=== PATIENT | female | born 1995 | race African-American/Black ===

== ENCOUNTER 2023-12-05 10:14 | Observation (INO) | payer BC ==
[~2023-12-05] VITALS: Ht 154.9 cm; Wt 76.7 kg
[2023-12-05] MEDS: LACTATED RINGERS 1,000 ML IV SCH ×2 (11:37→12:45)
[2023-12-05] MEDS ORDERED: ONDANSETRON 4 MG/2 ML VIAL IVP PRN (11:40)
[2023-12-05] MEDS ORDERED: MORPHINE SULFATE 4 MG/ML SYR ONE ×2 (11:41→11:49)
[2023-12-05] MEDS: ONDANSETRON 4 MG/2 ML VIAL ONE (11:45)
[2023-12-05] MEDS: MORPHINE SULFATE 10 MG/ML VIAL IVP PRN (11:46)
[2023-12-05] MEDS: TERBUTALINE 1 MG/ML VIAL SUBQ SCH (12:11)
[2023-12-05] MEDS ORDERED: PREN-543 PO (13:48)
== END 2023-12-05 14:05 | disposition home or self-care (01) ==
LOC: MLD 10:14
PROVIDERS: ADMIT Obstetrics & Gynecology; ATTEND Obstetrics & Gynecology
DX: O62.9 Abnormality of forces of labor, unspecified (principal); Z3A.39 39 weeks gestation of pregnancy
CPT/HCPCS: 96361; 96372; 96374; G0378; J2270; J2405; J3105

== ENCOUNTER 2023-12-06 06:08 | Inpatient (IN) | payer BC ==
[~2023-12-06] VITALS: Ht 154.9 cm; Wt 76.7 kg
[~2023-12-06 06:08] MED LIST: PREN-543 PO
[2023-12-06] MEDS: LACTATED RINGERS 1,000 ML IV SCH (07:16)
[2023-12-06] MEDS ORDERED: LACTATED RINGERS 500 ML IV SCH (07:40)
[2023-12-06] MEDS ORDERED: ONDANSETRON 4 MG/2 ML VIAL IVP PRN ×2 (07:45→13:45)
[2023-12-06] MEDS: TERBUTALINE 1 MG/ML VIAL SUBQ SCH (07:49)
[2023-12-06] MEDS: MORPHINE SULFATE 10 MG/ML VIAL IVP PRN (07:50)
[2023-12-06] MEDS: ONDANSETRON 4 MG/2 ML VIAL ONE (07:50)
[2023-12-06] MEDS ORDERED: AMPICILLIN 2,000 MG VIAL ONE (08:02)
[2023-12-06] MEDS: AMPICILLIN 2,000 MG in NACL 0.9% MINI-BAG PLUS 100 ML IV SCH (08:03)
[2023-12-06 08:22] LABS: BASOPHILS % (AUTO) 0.2 % (0.0-2.0); EOSINOPHILS % (AUTO) 0.1 % (0.0-4.0); HEMATOCRIT 41.5 % (36-48); LYMPHOCYTES # (AUTO) 1.4 K/uL (2.5-16.5); LYMPHOCYTES % (AUTO) 13.5 % (20.5-51.1); MEAN CORPUSCULAR HEMOGLOBIN 32 pg (27-31); MEAN CORPUSCULAR HGB CONC 34 g/dL (33-37); MEAN CORPUSCULAR VOLUME 96.1 fL (80-94); MONOCYTES # (AUTO) 0.7 K/uL (0.8-1.0); MONOCYTES % (AUTO) 6.5 % (1.7-9.3); NEUTROPHILS # (AUTO) 8.5 K/uL (1.8-7.7); NEUTROPHILS % (AUTO) 79.7 % (42.2-75.2); PLATELET COUNT (AUTO) 118 K/uL (140-450); RED BLOOD CELL COUNT(AUTO) 4.32 MIL/uL (4.20-5.40); WHITE BLOOD COUNT (AUTO) 10.7 K/uL (4.8-10.8)
[2023-12-06 08:23] LABS: APPEARANCE,URINE CLEAR (CLEAR); BILIRUBIN,URINE NEGATIVE (NEGATIVE); BLOOD, URINE 1+ (NEGATIVE); COLOR,URINE YELLOW (YELLOW); LEUKOCYTE ESTERASE ,URINE TRACE (NEGATIVE); NITRITE, URINE NEGATIVE (NEGATIVE); PROTEIN,URINE NEGATIVE (NEGATIVE); UGLUCOSE NEGATIVE (NEGATIVE)
[2023-12-06 08:33] VITALS: BP 123/81; PULSE 98; RESP 18; TEMP 98
[2023-12-06 08:39] LABS: BACTERIA,URINE 2+ /HPF (None Seen); RBC,URINE 11-20 (MOD) /HPF (0-5)
[2023-12-06 08:42] LABS: ALBUMIN 2.5 g/dL (3.4-5.0); ANION GAP 14.6 (8-16); CALCIUM 8.7 mg/dL (8.5-10.1); CARBON DIOXIDE 22.7 mmol/L (21-32); CREATININE 0.8 mg/dL (0.6-1.3); POTASSIUM 3.3 mmol/L (3.5-5.1); TOTAL BILIRUBIN 1.2 mg/dL (0.0-1.0); TOTAL PROTEIN, SERUM 6.3 g/dL (6.4-8.2)
[2023-12-06 08:47] LABS: INR 0.87 (0.8-1.2); PARTIAL THROMBOPLASTIN TIME 22.7 secs (22-35.6); PROTHROMBIN TIME 9.2 secs (10.8-13.4)
[2023-12-06] MEDS ORDERED: ROPIVACAINE 0.2%/NS PREMIX 200 ML EPI ONE (08:56)
[2023-12-06] MEDS: OXYTOCIN/0.9 % SODIUM CHLORIDE 500 ML IV ONE (10:45)
[2023-12-06] MEDS ORDERED: AMPICILLIN 1,000 MG VIAL ONE (11:26)
[2023-12-06] MEDS: AMPICILLIN 1,000 MG VIAL ONE (11:53)
[2023-12-06] MEDS: OXYTOCIN/0.9 % SODIUM CHLORIDE 500 ML IV SCH (11:55)
[2023-12-06] MEDS ORDERED: AMPICILLIN 1,000 MG in NACL 0.9% 50 ML IV SCH (12:00)
[2023-12-06] MEDS ORDERED: AMPICILLIN 1,000 MG in NACL 0.9% MINI-BAG PLUS 50 ML IV SCH (12:00)
[2023-12-06] MEDS ORDERED: oxyCODONE/APAP 5/325 MG 1 TAB TAB PO PRN ×2 (12:55)
[2023-12-06] MEDS ORDERED: TEMAZEPAM 15 MG CAP PO PRN (12:55)
[2023-12-06] MEDS ORDERED: IBUPROFEN 800 MG TAB PO PRN (12:55)
[2023-12-06] MEDS ORDERED: METHYLERGONOVINE 0.2 MG/ML AMP IM PRN (12:55)
[2023-12-06] MEDS ORDERED: KETOROLAC 30 MG/ML VIAL IVP PRN (12:55)
[2023-12-06] MEDS ORDERED: ceFAZolin 2,000 MG VIAL ONE (13:05)
[2023-12-06] MEDS ORDERED: LIDOCAINE/EPI MPF 2%1:200000 10 ML VIAL INJ ONE (13:08)
[2023-12-06] MEDS ORDERED: MORPHINE PRES FREE 5 MG/10 ML AMP IV ONE (13:08)
[2023-12-06] MEDS ORDERED: fentaNYL citrate 0.05 MG/ML VIAL ONE (13:08)
[2023-12-06] MEDS ORDERED: NALOXONE 0.4 MG/ML VIAL IVP PRN ×3 (13:45)
[2023-12-06] MEDS: OXYTOCIN 20 UNITS in LACTATED RINGERS 1,000 ML IV SCH (15:00)
[2023-12-06] MEDS: KETOROLAC 30 MG/ML VIAL IM/IVP SCH (18:01)
[2023-12-06] MEDS: diphenhydrAMINE 50 MG/ML VIAL IVP PRN (20:44)
[2023-12-06] MEDS ORDERED: OXYTOCIN/0.9 % SODIUM CHLORIDE 500 ML IV SCH (21:35)
[2023-12-07] MEDS: OXYTOCIN/0.9 % SODIUM CHLORIDE 500 ML IV SCH (01:05)
[2023-12-07 07:15] LABS: BASOPHILS # (AUTO) 0.1 K/uL (0.00-0.22); BASOPHILS % (AUTO) 0.6 % (0.0-2.0); EOSINOPHILS % (AUTO) 0.2 % (0.0-4.0); HEMATOCRIT 38.7 % (36-48); HEMOGLOBIN 12.9 g/dL (12.0-16.0); LYMPHOCYTES # (AUTO) 1.8 K/uL (2.5-16.5); LYMPHOCYTES % (AUTO) 13.4 % (20.5-51.1); MEAN CORPUSCULAR HEMOGLOBIN 32 pg (27-31); MEAN CORPUSCULAR HGB CONC 33 g/dL (33-37); MEAN CORPUSCULAR VOLUME 96.3 fL (80-94); MONOCYTES # (AUTO) 1.1 K/uL (0.8-1.0); MONOCYTES % (AUTO) 8.3 % (1.7-9.3); NEUTROPHILS # (AUTO) 10.5 K/uL (1.8-7.7); NEUTROPHILS % (AUTO) 77.5 % (42.2-75.2); PLATELET COUNT (AUTO) 91 K/uL (140-450); RED BLOOD CELL COUNT(AUTO) 4.02 MIL/uL (4.20-5.40); RED CELL DISTRIBUTION WIDTH 13.2 % (11.6-13.7); WHITE BLOOD COUNT (AUTO) 13.6 K/uL (4.8-10.8)
[2023-12-07] MEDS ORDERED: oxyCODONE/APAP 5/325 MG 1 TAB TAB PO PRN (08:00)
[2023-12-07] MEDS: IBUPROFEN 800 MG TAB PO PRN (18:52)
[2023-12-07] MEDS: oxyCODONE/APAP 5/325 MG 1 TAB TAB PO PRN (18:55)
[2023-12-07] MEDS: DOCUSATE SOD/SENNA 50/8.6 MG 1 TAB PO PRN (21:05)
[2023-12-08] MEDS ORDERED: CAMERA MC ONE (04:55)
[2023-12-09] MEDS ORDERED: CAMERA MC ONE (03:08)
== END 2023-12-09 10:15 | disposition home or self-care (01) | DRG 788 ==
LOC: MLD 06:08 → OBSVTOIN 07:41 → MFCC 15:00
PROVIDERS: ADMIT Obstetrics & Gynecology; ATTEND Obstetrics & Gynecology
PROC: 10D00Z1 Extraction of Products of Conception, Low, Open Approach (ICD-10-PCS; principal; 2023-12-06 12:45)
DX: O82 Encounter for cesarean delivery without indication (principal); Z3A.38 38 weeks gestation of pregnancy; Z37.0 Single live birth
CPT/HCPCS: 36415; 51702; 80053; 81001; 85025; 85610; 85730; 86592; 86886; 86900; 86901; 87086; 87653-90; J0290; J1200; J1885; J2001; J2270; J2405; J2590; J2795; J3010; J3105; J7120

== ENCOUNTER 2024-01-03 21:12 | Emergency (ER) | payer BC ==
[~2024-01-03] VITALS: Ht 154.9 cm; Wt 70.8 kg
[2024-01-03 22:18] VITALS: BP 148/101; PULSE 83; RESP 18; TEMP 97.3; O2SAT 97
[2024-01-03 22:48] LABS: BASOPHILS # (AUTO) 0.1 K/uL (0.00-0.22); BASOPHILS % (AUTO) 0.7 % (0.0-2.0); EOSINOPHILS # (AUTO) 0.4 K/uL (0-0.4); EOSINOPHILS % (AUTO) 4.9 % (0.0-4.0); HEMOGLOBIN 13.1 g/dL (12.0-16.0); LYMPHOCYTES # (AUTO) 3.2 K/uL (2.5-16.5); LYMPHOCYTES % (AUTO) 37.9 % (20.5-51.1); MEAN CORPUSCULAR HEMOGLOBIN 32 pg (27-31); MEAN CORPUSCULAR HGB CONC 34 g/dL (33-37); MEAN CORPUSCULAR VOLUME 94.9 fL (80-94); MONOCYTES # (AUTO) 0.6 K/uL (0.8-1.0); MONOCYTES % (AUTO) 7.4 % (1.7-9.3); NEUTROPHILS # (AUTO) 4.2 K/uL (1.8-7.7); NEUTROPHILS % (AUTO) 49.1 % (42.2-75.2); PLATELET COUNT (AUTO) 279 K/uL (140-450); RED CELL DISTRIBUTION WIDTH 12.6 % (11.6-13.7); WHITE BLOOD COUNT (AUTO) 8.5 K/uL (4.8-10.8)
[2024-01-03 23:27] LABS: ANION GAP 12.8 (8-16); CALCIUM 8.7 mg/dL (8.5-10.1); CARBON DIOXIDE 25.7 mmol/L (21-32); CREATININE 1.2 mg/dL (0.6-1.3); POTASSIUM 3.5 mmol/L (3.5-5.1)
[2024-01-04 02:42] VITALS: BP 126/79; PULSE 65; RESP 14; O2SAT 100
== END 2024-01-04 02:42 | disposition home or self-care (01) ==
LOC: MED 21:12
DX: N93.9 Abnormal uterine and vaginal bleeding, unspecified (principal); R10.33 Periumbilical pain; R03.0 Elevated blood-pressure reading, without diagnosis of hypertension; Z98.890 Other specified postprocedural states
CPT/HCPCS: 36415; 74177; 80048; 85025; 86900; 86901; 99285; Q9967